=== PATIENT | male | born 1995 | race Two or more races ===

== ENCOUNTER 2021-01-25 15:39 | Outpatient (CLI) | payer BC | END 2021-01-25 15:40 | disposition home or self-care (01) | LOC: LAB 15:39 → EDBD 15:39 → LAB 15:40 | PROVIDERS: ATTEND Obstetrics & Gynecology | DX: Z20.818 Contact with and (suspected) exposure to other bacterial communicable diseases (principal); Z20.828 Contact with and (suspected) exposure to other viral communicable diseases ==